=== PATIENT | female | born 1960 | race Caucasian/White ===

== ENCOUNTER 2019-09-29 06:24 | Day surgery (SDC) | payer OTHER ==
[2019-09-26 16:28] LABS: Basophils % 0.8 % (0-1.3); Hematocrit 41.7 % (36.0-45.0); Lymphocytes % 23.8 % (15.3-44.8); MPV 8.8 fL (7.6-11.3); RBC Red Blood Cell Count 4.62 M/uL (3.86-4.86)
--- OUTSIDE RECORDS SUMMARY | 2019-09-29 06:27 | XMS REPORT | Continuity of Care Document ---
:1960 Author Organization [email or web address] Care Team Providers Name Role Phone [email or web address] Unavailable Un available Problems Problem Status Onset Classification Date Comments Sourc e Date Reported Cervical disc 09/18/19 03/31/2018 OP ID disorder at C4-C5 18 [place] level with radiculopathy M54.12 - Active 08/25/19 OPID RADICULOPATHY, 18 [place] and CERVICAL REGION Intervertebral 03/31/2018 O PID disc disorders [place] and with radiculopathy, lumbar region Spinal stenosis, 03/31/2018 OP[facility] cervical region [place] Other spondylosis 03/31/2018 M H OPID with [place] radiculopathy, lumbar region Medications No Data Provided for This Section Allergies, Adverse Reactions, Alerts No Known Medication Allergies Immunizations No Data Provided for This Section Results No Data Provided for This Section Pathology Reports No Data Provided for This Section Diagnostic Reports Report Value Date Source Spine lumbar wo MRI LUMBAR SPINE WITHOUT CONTRAST 09/11/2017 OPID [place] contrast MRI HISTORY: M54.16 Radiculopa thy, lumbar region - chronic low back pain and left lower extremity pain COMPARISON: None available. TECHNIQUE: Multiplanar T1, T 2, fluid-sensitive weighted MRI of the lumbar spine without contrast is performed on the 1.5 Nichelle magnet. FINDINGS: No fracture is seen. Vertebr al body heights are maintained. No bone marrow edema or aggressive osseous lesion. No discitis/osteomyelitis. No paraspinal mass, fluid collection, or soft tissue inflammatory signal. There is relatively mild mul tilevel disc degeneration and facet arthrosis in the lumbar spine. No spondylolisthesis. No high-grade canal stenosis or neural foraminal narrowing is evident. The nerve root s of the cauda equina are no rmal. No epidural mass or fluid collection is seen. Visualized portion the kidneys is normal . No aneurysm of the visualized aorta. DISC SPACES: T12/L1: Mild degenerative di sc desiccation without posterior disc protrusion. Normal facet joints. No canal stenosis or neural foraminal narrowing. L1/L2: Mild degenerative dis c desiccation without disc protrusion. Mild degenerative facet and ligamentum flavum hypertrophy. No canal stenosis or neural foraminal narrowing. L2/L3: Mild degenerative dis c desiccation without disc protrusion. Mild degenerative facet and ligamentum flavum hypertrophy. No canal stenosis or neural foraminal narrowing. L3/L4: Mild degenerative dis c desiccation with mild diffuse disc bulge. Mild degenerative facet and ligamentum flavum hypertrophy. No canal stenosis. Mild right neural foraminal narrowing. No left neural foraminal narrowing. L4/L5: Mild degenerative dis c desiccation with mild diffuse disc bulge. Mild/moderate degenerative facet and ligamentum flavum hypertrophy. No canal stenosis. No right neural foraminal narrowing. Mild left neural foraminal narrowing. L5/S1: Mild degenerative dis c desiccation with mild diffuse disc bulge. Moderate degenerative facet hypertrophy. No canal stenosis or neural foraminal narrowing. IMPRESSION: 1. Relatively mild multilevel disc degeneration and facet arthrosis. 2. No significant canal stenosis or neural emperatriz inal narrowing. SL: [id number] Spine cervical wo MRI CERVICAL SPINE WITHOUT CONTRAST 09/11/2017 CONNIE [place] contrast MRI HISTORY: M54.12 Radiculopa thy, cervical region; 57-year-old female reports neck pain and shoulder and upper extremity pain and paresthesia of the hands, history of C6/C7 laminotomy greater than 10 years ago COMPARISON: None available. TECHNIQUE: Multiplanar T1, T 2, fluid-sensitive weighted MRI of the cervical spine without contrast is performed on the 1.5 Nichelle magnet. FINDINGS: No fracture is seen. Vertebr al body heights are maintained. No bone marrow edema or aggressive osseous lesion. No discitis/osteomyelitis. No paraspinal mass, fluid collection, or soft tissue inflammatory signal. Variable multilevel disc deg eneration throughout the cervical spine with associated endplate uncovertebral spurring. No significant cervical facet arthrosis. There is straightening of the cervical lordo sis. There is a defect in th e left C6 lamina which corresponds to supplied clinical history of prior laminotomy (axial series 801 images 8 and 9). The cervical spinal cord is normal in size, shape, and signal intensity throughout its course. No epidural mass or fluid collection. DISC SPACES: C2/C3: Normal intervertebral disc. No canal stenosis or neural foraminal narrowing. C3/C4: Mild bilateral uncove rtebral spurring. No canal stenosis or neural foraminal narrowing. C4/C5: Trace broad-based pos terior disc protrusion. Moderate to severe bilateral uncovertebral spurring, greater on the left. Mild/moderate canal stenosis. Mild right neural foraminal narrowing. Moderate to severe left neural foraminal narrowing. C5/C6: Trace broad-based pos terior spur and disc complex. Mild to moderate bilateral uncovertebral spurring. Mild canal stenosis. No right neural foraminal narrowing. Moderate to severe left neural foraminal narrowing. C6/C7: Mild broad-based post erior spur and disc complex, asymmetric to the right neural foramen and left lateral recess. Changes of left hemilaminectomy. Mild canal stenosis. Mild right neural foraminal narrowing. No left neural foraminal narrowing. C7/T1: Trace posterior centr al disc protrusion. No canal stenosis or neural foraminal narrowing. The visualized soft tissue structures of the nec k are grossly normal. IMPRESSION: 1. Multilevel disc degenerat ion with associated endplate and uncovertebral spurring. 2. Changes of prior left hemilaminectomy at C6/C 7. 3. Moderate to severe left neural foraminal narr owing at C4/C5 and C5/C6. 4. Mild/moderate canal steno sis at C4/C5 and mild canal stenosis at C5/C6 and C6/C7. 5. Mild right neural foraminal narrowing at C6/C 7. SL: [id number] Consultation Notes No Data Provided for This Section Discharge Summaries No Data Provided for This Section History and Physicals No Data Provided for This Section Vital Signs No Data Provided for This Section Encounters Location Location Encounter Encounter Reason Attending ADM NC Stat Source Details Type Number For Provider Date Date Visit [facility] Outpt Diag [id number] [place] 09/11 09/12 [facility] [place] [facility] [place] Procedures No Data Provided for This Section Assessment and Plan No Data Provided for This Section Plan of Care No Data Provided for This Section Social History Social History Date Source No data available for this 09/12/2017 OPID [place] and section Family History No Data Provided for This Section Advance Directives No Data Provided for This Section Functional Status No Data Provided for This Section
--- OUTSIDE RECORDS SUMMARY | 2019-09-29 06:27 | XMS REPORT | Continuity of Care Document ---
:1960 Author Organization [facility] t Address [address] [place] [address] Care Team Providers Name Role Phone Giancarlo Lazo MD Primary Care Physician Sveta Nava Attending Clinician Payers Payer Name Policy Type Policy Number Effective Date Expiration Date S ource Problems Condition Condition Condition Status Onset Resolution Last Treating Co mments Source Name Details Category Date Date Treatment Clinician Date M54.12 - Diagnosis Active 2017-09-11 M emoria RADICULOPA 7-16 12:27:00 l THY, M54.12 - 00:01: Brian n CERVICAL RADICULOPA 00 REGION THY, CERVICAL REGION Active 08/24/2017 OPID [place] SOB SOB Disease Active [place] (shortness (shortness 2-26 Me thodi of breath) of breath) 00:00: st 00 Chest pain Chest pain Disease Active [place] 2-26 Method[facility] 00:00: st 00 Pure Pure Disease Active [place] hyperchole hyperchole 2-26 Me thodi sterolemia sterolemia 00:00: st 00 Interverte Problem 2018-03-31 M emoria bral disc 12:48:50 l disorders [place] with Interverte radiculopa bral disc thy, disorders lumbar with region radiculopa thy, lumbar region 03/31/2018 OPID [place] Spinal Problem 2018-03-31 Memor ia stenosis, 12:48:50 l cervical Spinal Brian n region stenosis, cervical region 03/31/2018 OPID [place] Other Problem 2018-03-31 Memor ia spondylosi 12:48:50 l s with Other [place] radiculopa spondylosi thy, s with lumbar radiculopa region thy, lumbar region 03/31/2018 OPID [place] Cervical Problem 2018-0 2018-03-31 2018-03-31 Memoria disc 8- 12:48:50 12:48:50 l disorder Cervical 04:22: Herm joseline at C4-C5 disc 56 level with disorder radiculopa at C4-C5 thy level with radiculopa thy 09/17/2017 03/31/2018 CONNIE [place] Allergies, Adverse Reactions, Alerts Allergy Allergy Status Severity Reaction(s) Onset Inactive Treating Comm ents Source Name Type Date Date Clinician erythrom DA Active U 2018-02 [facility] 03[facility] [facility] [place] [place] 00:00: [facility]ope [facility] DUST DA Active U 2018-02 [facility] MITES 03-01 [place] 00:00: Orthope 00 [facility] Erythrom Propensi Active [place] ycin ty to 04-03 [facility] adverse 00:00: st reaction 00 s to drug Family History Family Member Diagnosis Comments Start Date Stop Date Source Natural father Heart disease [place] [facility] Natural father Hypertension [facility] Social History Social Habit Start Date Stop Date Quantity Comments Source Sex Assigned At [facility] ethodist Social History 2017-09-12 2017-09-12 [facility] 04:59:00 04:59:00 Alcohol intake 2016-04-03 2016-04-03 Current drinker [place] [facility] 00:00:00 00:00:00 of alcohol (finding) Alcohol Comment 2016-04-03 2016-04-03 socially rare [place] [facility] 00:00:00 00:00:00 Smoking Status Start Date Stop Date Source Never smoker [place] Medications Ordered Filled Start Stop Current Ordering Indication Dosage Frequency Signature Comments Components Source Medication Medication Date Date Medication? Clinician (SIG) Name Name frannie 2015-02 Yes TAKE 1 [place] (LIPITOR) 2-20 TABLET BY [facility] [place] 20 MG 00:00: ORAL ROUTE st tablet 00 EVERY DAY AFTER EVENING MEAL finasteride 2015-02 Yes 5mg QD Take 5 mg [place] (PROSCAR) 5 2-13 by mouth Meth [place] mg tablet 00:00: once st 00 daily. Procedures This patient has no known procedures. Plan of Care Planned Activity Planned Date Details Comments Source Future Scheduled 2019-10-11 INFLUENZA VACCINE [place] [facility] Test 00:00:00 [code = INFLUENZA VACCINE] Future Scheduled 2010 BREAST CANCER [facility] thodist Test 00:00:00 SCREENING [code = BREAST CANCER SCREENING] Future Scheduled 2010 COLONOSCOPY SCREENING [place] [facility] Test 00:00:00 [code = COLONOSCOPY SCREENING] Future Scheduled 2010 SHINGLES VACCINES [place] [facility] Test 00:00:00 (#1) [code = SHINGLES VACCINES (#1)] Future Scheduled 1981 Screening for [facility] thodist Test 00:00:00 malignant neoplasm of cervix (procedure) [code = 151068441] Encounters Start End Encounter Admission Attending Care Care Encounter Source Date/Time Date/Time Type Type Clinicians Facility Department ID 2017-09-11 2017-09-11 Outpatient Brandy [facility] [id number] 12:17:00 23:59:00 [place] 00 2017-09-11 2017-09-11 Outpatient Brandy [facility] [id number] 12:17:00 23:59:00 [place] 00 Results Test Description Test Time Test Comments Results Result [facility] e Comments - XR FLUORO NDL 2019-02-14 Patient Name: 16:48:00 ANTHONY BANKS Unit No: [id number] EXAMS: CPT CODE: [id number] XR FLUORO NDL 63665 FLUOROSCOPICALLY GUIDED right hip INTRA-ARTICULAR STEROID AND MARCAINE INJECTION COMMENT: After informed consent was obtained a 25-gauge needle is inserted into the right hip joint under fluoroscopic control using sterile technique. 3 mL of Isovue-300 is instilled into the joint. This is followed by injection of 2 mL of Kenalog 40 mg/mL and 4mL of Marcaine. The patient tolerated the procedure well. 0.5 minutes of fluoroscopy time was used on this exam. at 1648 Reported and signed by: Marybel Brenner MD CC: Romeo Villalpando MD Technologist: Alicia Borrego, RT.(R) Transcribed D/ (972) ReinaGVG [facility] NAME: ANTHONY BANKS [address] PHYS: Romeo Limon : 1960 AGE: 58 SEX: F [place] [address] LOC: Y.RAD PHONE #: [phone] EXAM DATE: 02/07/2019 STATUS: DEP CLI FAX #: [phone] RAD #: D/C DT PAGE 1 Signed Report Patient Name: ANTHONY BANKS Unit No: [id number] EXAMS: CPT CODE: [id number] XR FLUORO NDL 43221 <Continued> Orig Print D/T: S: 02/14/2019 (143) [facility] NAME: ANTHONY BANKS [address] [place] [address] PHYS: SADIQ Romeo Villalpando : 1960 AGE: 58 SEX: F [place] [address] LOC: Y.RAD PHONE #: [phone] EXAM DATE: 02/07/2019 STATUS: DEP CLI FAX #: [phone] RAD #: D/C DT PAGE 2 Signed Report - MRI [facility] 2018-12-31 Patient Name: W/CONTRAST RT 08:55:00 ANTHONY BANKS Unit No: [id number] EXAMS: CPT CODE: [id number] MRI [facility] W/[place] [address] RIGHT HIP ARTHROGRAM AND LIDOCAINE INJECTION DIAGNOSIS: No definite abnormality. COMMENT: COMPARISON: No prior exams available. After informed consent was obtained a single-contrast arthrogram was performed with equal parts Isovue-300 and dilute gadolinium by . 0.7 minutes of fluoroscopy time was utilized. The patient refused steroids due to a prior reaction. The normal recesses were opacified. An AP radiograph was obtained. Subsequently 2 mL of 1% lidocaine was injected into the joint. No immediate complications were encountered. MRI OF THE RIGHT HIP POST ARTHROGRAPHY TECHNIQUE: Multiplanar multisequence MR images of the right hip were obtained following intra-articular administration of gadolinium contrast (see separately dictated procedure note for details). Images were then viewed on the PACS workstation in the axial, coronal and sagittal planes. COMPARISON: None available. FINDINGS: Bone: Marrow signal intensity is normal. Cartilage: No hyaline cartilage defects are seen. Labrum: There is a tear of the anterior superior labrum. Femoroacetabular Impingement Assessment: Alpha Angle (normal= <55 degrees) : 39 degrees Lateral Center Edge Angle (normal=25-39 degrees): 38 degrees Extraarticular Hip Impingement: No osseous proliferation of the anterior inferior iliac spine. Iliopsoas tendon is unremarkable. No evidence of ischiofemoral impingement. Tendons: There is low-grade partial tearing of the lateral insertion of the gluteus medius tendon with tendinitis. No tendon retraction is seen. Mild tendinosis of the posterior superior attachment and the gluteus minimus tendon is also noted. Bursitis: No significant trochanteric or iliopsoas bursitis. [facility] NAME: ANTHONY BANKS [address] [facility] PHYS: Benoit Wallace MD : 1960 AGE: 58 SEX: F [place] [address] LOC: Y.RAD PHONE #: [phone] EXAM DATE: 12/30/2018 STATUS: DEP CLI FAX #: [phone] RAD #: D/C DT PAGE 1 Signed Report (CONTINUED) Patient Name: ANTHONY BANKS Unit No: [id number] EXAMS: CPT CODE: [id number] MRI LW JNT W/[place] [address] <Continued> Muscles: Signal intensity and volume are preserved. Other: Partially visualized intrapelvic structures are unremarkable. IMPRESSION: Labral tearing and gluteal tendon abnormality. at 0815 Reported and signed by: Johnnie Grubbs MD CC: Benoit Reynaga MD Technologist: Ashley Karimi, RT(R) Transcribed D/ (0802) tLI.BRAINL [facility] NAME: ANTHONY BANKS [address] [facility] PHYS: Benoit Wallace MD : 1960 AGE: 58 SEX: F [place] [address] LOC: Y.RAD PHONE #: [phone] EXAM DATE: 12/30/2018 STATUS: DEP CLI FAX #: [phone] RAD #: D/C DT PAGE 2 Signed Report Patient Name: ANTHONY BANKS Unit No: [id number] EXAMS: CPT CODE: [id number] MRI LW JNT W/[place] [address] <Continued> Orig Print D/T: S: 12/31/2018 (0859) [facility] NAME: ANTHONY BANKS [address] PHYS: HERMELINDAARELI Onofre Benoit Reynaga MD : 1960 AGE: 58 SEX: F [place] [address] LOC: Y.RAD PHONE #: [phone] EXAM DATE: 12/30/2018 STATUS: DEP CLI FAX #: [phone] RAD #: D/C DT PAGE 3 Signed Report - XR ARTHROGRAM 2018-12-31 Patient Name: HIP W/O AN RT+ 08:55:00 ANTHONY BANKS Unit No: [id number] EXAMS: CPT CODE: [id number] XR ARTHROGRAM HIP W/O AN RT+ [address]309 RIGHT HIP ARTHROGRAM AND LIDOCAINE INJECTION DIAGNOSIS: No definite abnormality. COMMENT: COMPARISON: No prior exams available. After informed consent was obtained a single-contrast arthrogram was performed with equal parts Isovue-300 and dilute gadolinium by . 0.7 minutes of fluoroscopy time was utilized. The patient refused steroids due to a prior reaction. The normal recesses were opacified. An AP radiograph was obtained. Subsequently 2 mL of 1% lidocaine was injected into the joint. No immediate complications were encountered. MRI OF THE RIGHT HIP POST ARTHROGRAPHY TECHNIQUE: Multiplanar multisequence MR images of the right hip were obtained following intra-articular administration of gadolinium contrast (see separately dictated procedure note for details). Images were then viewed on the PACS workstation in the axial, coronal and sagittal planes. COMPARISON: None available. FINDINGS: Bone: Marrow signal intensity is normal. Cartilage: No hyaline cartilage defects are seen. Labrum: There is a tear of the anterior superior labrum. Femoroacetabular Impingement Assessment: Alpha Angle (normal= <55 degrees) : 39 degrees Lateral Center Edge Angle (normal=25-39 degrees): 38 degrees Extraarticular Hip Impingement: No osseous proliferation of the anterior inferior iliac spine. Iliopsoas tendon is unremarkable. No evidence of ischiofemoral impingement. Tendons: There is low-grade partial tearing of the lateral insertion of the gluteus medius tendon with tendinitis. No tendon retraction is seen. Mild tendinosis of the posterior superior attachment and the gluteus minimus tendon is also noted. Bursitis: No significant trochanteric or iliopsoas bursitis. [facility] NAME: ANTHONY BANKS [address] [place] [address] PHYS: Benoit Wallace MD : 1960 AGE: 58 SEX: F [place] [address] LOC: Y.RAD PHONE #: [phone] EXAM DATE: 12/30/2018 STATUS: DEP CLI FAX #: [phone] RAD #: D/C DT PAGE 1 Signed Report (CONTINUED) Patient Name: ANTHONY BANKS Unit No: [id number] EXAMS: CPT CODE: [id number] XR ARTHROGRAM HIP W/O AN RT+ 84590 <Continued> Muscles: Signal intensity and volume are preserved. Other: Partially visualized intrapelvic structures are unremarkable. IMPRESSION: Labral tearing and gluteal tendon abnormality. at 0855 Reported and signed by: Johnnie Grubbs MD CC: Benoit Reynaga MD Technologist: Alicia Borrego, RT.(R) Transcribed D/ (0855) Escobar [facility] NAME: ANTHONY BANKS [address] [place] [address] PHYS: Benoit Wallace MD : 1960 AGE: 58 SEX: F [place] [address] LOC: Y.RAD PHONE #: [phone] EXAM DATE: 12/30/2018 STATUS: DEP CLI FAX #: [phone] RAD #: D/C DT PAGE 2 Signed Report Patient Name: ANTHONY BANKS Unit No: [id number] EXAMS: CPT CODE: [id number] XR ARTHROGRAM HIP W/O AN RT+ 96281 <Continued> Orig Print D/T: S: 12/31/2018 (0859) [facility] NAME: ANTHONY BANKS [address] [facility] [address] PHYS: Benoit Wallace MD : 1960 AGE: 58 SEX: F [place], [place] [address] LOC: Y.RAD PHONE #: [phone] EXAM DATE: 12/30/2018 STATUS: CRESENCIO CLI FAX #: [phone] RAD #: D/C DT PAGE 3 Signed Report - MRI LW JNT W/O 2018-12-31 Patient Name: CONT RT 08:51:00 ANTHONY BANKS Unit No: [id number] EXAMS: CPT CODE: [id number] MRI LW JNT W/[place] [address] MRI OF THE RIGHT KNEE DIAGNOSIS: 1. 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 A small amount of joint fluid is seen without evidence for a loose body. 2. Mild edema is seen in the infrapatellar fat abutting the inferior pole of patella laterally most consistent with a tracking abnormality. There is mild cartilage edema involving the superior aspect of the lateral patellar facet. There is mild lateral patellar tilting without subluxation. The quadriceps and patellar tendons are within normal limits in appearance. COMMENT: COMPARISON: No prior exams available. Scans were performed in the sagittal, axial and coronal planes utilizing T1, spin density with fat saturation and T2-weighted pulse sequences. Chondromalacia is present as noted. The medial and lateral menisci are within normal limits in configuration. No abnormality is seen involving the anterior or posterior cruciate or medial or lateral collateral ligaments. at 0851 Reported and signed by: Johnnie Grubbs MD CC: Benoit Reynaga MD Technologist: Kaycee Fall, RT(R) Transcribed D/ (0851) ReinaJCL [facility] NAME: ANTHONY BANKS [address] [place] [address] PHYS: Benoit Wallace MD : 1960 AGE: 58 SEX: F [place] [address] LOC: Y.RAD PHONE #: [phone] EXAM DATE: 12/30/2018 STATUS: DEP CLI FAX #: [phone] RAD #: D/C DT PAGE 1 Signed Report Patient Name: ANTHONY BANKS Unit No: [id number] EXAMS: CPT CODE: [id number] MRI LW T W/[place] [address] <Continued> Orig Print D/T: S: 12/31/2018 (0854) [facility] NAME: ANTHONY BANKS [facility] PHYS: Benoit Wallace MD : 1960 AGE: 58 SEX: F [place] [address] LOC: Y.RAD PHONE #: [phone] EXAM DATE: 12/30/2018 STATUS: DEP CLI FAX #: [phone] RAD #: D/C DT PAGE 2 Signed Report - MRI UP T W/O 2018-12-30 Patient Name: CONT LT 10:17:00 ANTHONY BANKS Unit No: [id number] EXAMS: CPT CODE: [id number] MRI UP T W/[place] [address] MRI OF THE LEFT SHOULDER DIAGNOSIS: No evidence for rotator cuff tear. COMMENT: COMPARISON: No prior exams available. Scans were performed in the paracoronal, parasagittal and axial planes utilizing T1 , spin density with fat saturation and T2-weighting with and without fat saturation. The supraspinatus, infraspinatus, subscapularis and biceps tendons are within normal limits in signal and configuration. The acromion is horizontal with AC joint degenerative change. There is no evidence for a labral tear. A small amount of joint fluid is seen and a minimal amount of bursal fluid is noted. at 1017 Reported and signed by: Johnnie Grubbs MD CC: Pavan Martinez MD Technologist: Ashley Karimi, RT(R) Transcribed D/ (1017) FlynnL [facility] NAME: ANTHONY BANKS [address] [facility] PHYS: Pavan Singer : 1960 AGE: 58 SEX: F [place] [address] LOC: Y.MRI PHONE #: [phone] EXAM DATE: 12/30/2018 STATUS: REG CLI FAX #: [phone] RAD #: D/C DT PAGE 1 Signed Report Patient Name: ANTHONY BANKS Unit No: [id number] EXAMS: CPT CODE: [id number] MRI [place] JNT W/[place] [address] <Continued> Orig Print D/T: S: 12/30/2018 (1020) [facility] NAME: ANTHONY BANKS [address] [place] [address] PHYS: Pavan Singer : 1960 AGE: 58 SEX: F [place] [address] LOC: Y.MRI PHONE #: [phone] EXAM DATE: 12/30/2018 STATUS: REG CLI FAX #: [phone] RAD #: D/C DT PAGE 2 Signed Report
--- OUTSIDE RECORDS SUMMARY | 2019-09-29 06:27 | XMS REPORT | Clinical Summary ---
:1960 Author Organization [facility] Address [address] [place] [address] Care Team Providers Name Role Phone Giancarlo Lazo MD Primary Care Provider Allergies Active Allergy Reactions Severity Noted Date Comments Erythromycin 04/03/2016 Medications Medication Sig Dispensed Refills Start Date End Date Status atorvastatin (LIPITOR) TAKE 1 TABLET BY 3 01/29/2016 Active 20 MG tablet ORAL ROUTE EVERY DAY AFTER EVENING MEAL finasteride (PROSCAR) 5 Take 5 mg by 0 01/22/2016 Active mg tablet mouth once daily. Active Problems Problem Noted Date SOB (shortness of breath) 04/06/2016 Chest pain 04/06/2016 Pure hypercholesterolemia 04/06/2016 Family History Medical History Relation Name Comments Heart disease Father Hypertension Father Relation Name Status Comments Father Alive Mother Alive Social History Tobacco Use Types Packs/Day Years Used Date Never Smoker Alcohol Use Drinks/Week oz/Week Comments Yes socially rare Sex Assigned at Date Recorded Not on file Job Start Date Occupation Industry Not on file Not on file Not on file Travel History Travel Start Travel End No recent travel history available. Last Filed Vital Signs Not on file Plan of Treatment Health Maintenance Due Date Last Done Comments CERVICAL CANCER SCREENING 1981 BREAST CANCER SCREENING 2010 COLONOSCOPY SCREENING 2010 SHINGLES VACCINES (#1) 2010 INFLUENZA VACCINE 10/11/2019 Results Not on fileafter 09/28/2018 Advance Directives For more information, please contact: [phone] Type Date Recorded Patient Pre Parole Counseling Aide Explanati on Advance Directives, Living Will and Medical Power of Ballistic Expert
[2019-09-29] MEDS ORDERED: DOXYCYCLINE 200 MG in NA CHLORIDE 0.9% 250 ML IVPB SCH (06:30)
[2019-09-29] MEDS ORDERED: Ringers Lactate 1,000 ML IV ONE (06:48)
[2019-09-29] MEDS ORDERED: FENTANYL CITR 100 MCG/2 ML ONE (07:12)
[2019-09-29] MEDS ORDERED: propofoL 200 MG/20 ML VIAL IV ONE ×2 (07:12→07:46)
[2019-09-29] MEDS ORDERED: MIDAZOLAM HCL 2 MG/2 ML INJ ONE (07:12)
[2019-09-29] MEDS ORDERED: LIDOCAINE 2% MPF 5 ML VIAL ONE (07:12)
[2019-09-29] MEDS ORDERED: dexAMETHasone 10 MG/ML VIAL ONE (07:12)
[2019-09-29] MEDS ORDERED: KETOROLAC 30 MG/ML INJ ONE (07:12)
[2019-09-29] MEDS ORDERED: ONDANSETRON 4 MG/2 ML VIAL ONE (07:13)
[2019-09-29] MEDS ORDERED: CARBOPROST TROME 250 MCG/ML IM ONE (07:16)
[2019-09-29] MEDS ORDERED: SILVER NITRATE 1 APPL TOP ONE (07:16)
[2019-09-29] MEDS ORDERED: NA CHLORIDE 0.9% 2,000 ML ONE (07:16)
[2019-09-29] MEDS ORDERED: METHYLERGONOVINE 0.2MG/ML AMP IM ONE (07:16)
[2019-09-29] MEDS ORDERED: OXYTOCIN 10 UNIT/ML ML IV ONE (07:16)
[2019-09-29] MEDS ORDERED: PROMETHAZINE INJ 25 MG/ML AMP IV PRN (07:54)
[2019-09-29] MEDS ORDERED: KETOROLAC 30 MG/ML INJ IV PRN (07:56)
[2019-09-29] MEDS ORDERED: Ringers Lactate 1,000 ML IV SCH (08:00)
[2019-09-29] MEDS ORDERED: HYDROCODONE/APAP 10/325 TAB ONE (08:36)
[2019-09-29 08:48] VITALS: TEMP 97.7; O2SAT 94
--- NOTE | 2019-09-29 10:11 | OP ---
Surgeon: Vignesh Scherer MD Preoperative Diagnosis: Postmenopausal bleeding. Postoperative Diagnosis: Postmenopausal bleeding with endometrial polyp. Procedure: Hysteroscopy, excision of endometrial polyp, dilatation and curettage of uterine endometr ium. Description Of Procedure: After satisfactory level of general anesthesia was obtained, the patient w as prepped and draped in the usual fashion in high leg holders. A weighted speculum was placed in th e vagina. Cervix was visualized and grasped. Cervix was sufficiently dilated to admit hysteroscope. Upon entering the endocervical canal, a large endometrial polyp was noted. No other abnormalities in the endometrium were noted. This was excised and removed as was a smaller endocervical polyp foll owed by sharp curettage. The patient was awakened, taken to recovery room in satisfactory condition. Estimated Total Blood Loss: Less than 5 mL. Final Hospital Discharge Diagnoses: 1.Postmenopausal bleeding. 2.Endometrial polyp. Complications: None. Procedure: Hysteroscopy, excision of endometrial polyp curettage of the uterine endometrium. Hospital Course: The patient is a 59-year-old female, admitted for postmenopausal bleeding . Noted to have a large endometrial polyp by hysteroscopy. This was excised. She was dismissed to be seen back in my office in 2 weeks with usual post hysteroscopy activity restrictions. CBC and COVID test were normal. KATHI/PHAM Voice ID: [id number] Report ID: [id number]
[2019-09-29 12:20] VITALS: BP 130/70
--- NOTE | 2019-10-04 10:56 | PREOPHP ---
Date of Admission: 09/29/2019 History Of Present Illness: Ms. Hilton is a 59-year-old female, 2, para 2-0 -0-2, who is admitted for hysteroscopy and D and C for postmenopausal bleeding. She has had some of this 1 time approximately 6 or 7 years ago D and C seemed to indicate endometrial polyp. Past Medical History: Includes 2 prior vaginal deliveries, prior cholecystectomy, prior septal rhino plasty, prior laminectomy, and recent tooth surgery. Current Medications: Include only Lipitor. Allergies: SHE LISTS ALLERGY TO ERYTHROMYCIN CAUSING MOUTH ULCERS. Social History: She does not smoke. Family History: Significant for father with diabetes and heart disease, otherwise noncontributory. Review of Systems: She reports no recent cough, cold, fever, or chills. No recent nausea or vomiting. No breast knots or lumps. No bowel or bladder issues. Physical Examination: General: A pleasant female, in no apparent distress. Neck: Supple without adenopathy or thyromegaly. Lungs: Clear. Cardiac: Regular rate and rhythm without murmurs. Breasts: Not examined. Abdomen: Nontender without organomegaly or splenomegaly. Pelvic: Normal female external genitalia. Vaginal wall is pink, rugated. No blood seen today. Bim anual, no abnormalities. Extremities: No cyanosis, clubbing, or edema. Plan: The patient will undergo hysteroscopy and D and C for postmenopausal bleeding. I suspect she has recurrent or persistent endometrial polyps. She has signed operative permit in my presence. KATHI/PHAM Voice ID: [id number]
== END 2019-09-29 09:14 | disposition home or self-care (01) ==
LOC: OR 06:24
PROVIDERS: ATTEND Specialist
PROC: 0UDB8ZX Extraction of Endometrium, Via Natural or Artificial Opening Endoscopic, Diagnostic (ICD-10-PCS; 2019-09-29)
PROC: 0UB98ZX Excision of Uterus, Via Natural or Artificial Opening Endoscopic, Diagnostic (ICD-10-PCS; principal; 2019-09-29 07:30)
DX: N95.0 Postmenopausal bleeding (principal); N84.0 Polyp of corpus uteri; Z11.59 Encounter for screening for other viral diseases
CPT/HCPCS: 85025; 36415; 88305; 58558; U0002; J2704 ×2; J2250; J3010; J1100; J7120; J7050; J7030; J2405; J2210; J2590